=== PATIENT | male | born 1985 | race African-American/Black ===

== ENCOUNTER 2025-05-26 19:01 | Emergency (ER) | payer OTHER ==
[~2025-05-26] VITALS: Ht 185.4 cm; Wt 84.1 kg
[2025-05-26 19:03] VITALS: TEMP 98.2
[2025-05-26 20:13] LABS: BASO # 0.0 10^3/uL (0.0-0.2); BASO % 0.5 % (0.0-1.0); EOS # 0.2 10^3/uL (0.0-0.5); EOS % 3.5 % (0.0-3.0); LYMPH # 1.6 10^3/uL (1.5-5.0); LYMPH % 38.4 % (24.0-44.0); MONO # 0.5 10^3/uL (0.0-0.8); MONO % 11.1 % (2.0-8.0); NEUTROPHILS # 2.0 10^3/uL (1.5-8.5); NEUTROPHILS % 46.3 % (36.0-66.0); PLATELET COUNT, AUTOMATED 248 10^3/uL (150-450)
[2025-05-26 20:18] LABS: KETONE, URINE AUTO RFX NEGATIVE (NEGATIVE); LEUKOCYTE ESTERASE UR AUTO RFX NEGATIVE (NEGATIVE); MUCUS, URINE RFX SMALL (NEGATIVE); NITRITE, URINE AUTO RFX NEGATIVE (NEGATIVE); RBC, URINE AUTO RFX 2 /HPF (0-3); SQUAM EPITHELIAL CELL UR AURFX 0 /HPF (0-6); WBC, URINE AUTO RFX 1 /HPF (0-3)
[2025-05-26 20:39] LABS: ALT/SGPT 46 U/L (7.0-40); AST/SGOT 38 U/L (<34); CALCIUM LEVEL 9.1 MG/DL (8.5-10.1); CARBON DIOXIDE LEVEL 28 MMOL/L (20-31); CHLORIDE LEVEL 108 MMOL/L (98-107); CREATININE FOR GFR 0.91 MG/DL (0.70-1.30); GLOMERULAR FILTRATION RATE > 90.0 (>60); POTASSIUM SERUM 4.0 MMOL/L (3.5-5.1); SODIUM LEVEL 143 MMOL/L (136-145)
[2025-05-26] MEDS ORDERED: ISOVUE-370 76% 100 ML VIAL As Ordered ONE (21:36)
[2025-05-26 21:53] LABS: FREE T4 1.40 NG/DL (0.89-1.76)
[2025-05-26] MEDS ORDERED: PRED20TA PO (23:22)
[2025-05-26] MEDS ORDERED: OMEP10CASR PO (23:22)
[2025-05-26] MEDS ORDERED: SUCR1TA PO (23:22)
[2025-05-26 23:30] VITALS: O2SAT 99
[2025-05-26 23:31] VITALS: BP 131/83
== END 2025-05-26 23:34 | disposition home or self-care (01) ==
LOC: M ED 19:01
DX: A08.39 Other viral enteritis (principal); E05.00 Thyrotoxicosis with diffuse goiter without thyrotoxic crisis or storm
CPT/HCPCS: 74177; 80048; 80053; 80061; 80076; 80178; 81001; 82306; 83036; 83690; 84439; 84443; 85025; 85027; 99284; Q9967

== ENCOUNTER → 2025-05-26 | Outpatient (CLI) | payer OTHER ==
[~2025-05-26] MED LIST: OMEP10CASR PO; PRED20TA PO; SUCR1TA PO
[2025-05-26 20:27] LABS: PLATELET COUNT, AUTOMATED 247 10^3/uL (150-450)
[2025-05-26 20:53] LABS: ALT/SGPT 45 U/L (7.0-40); AST/SGOT 36 U/L (<34); CALCIUM LEVEL 9.1 MG/DL (8.5-10.1); CARBON DIOXIDE LEVEL 27 MMOL/L (20-31); CHLORIDE LEVEL 108 MMOL/L (98-107); CHOLESTEROL LEVEL 208 MG/DL (<200); CHOLESTEROL RISK RATIO 2.41 (<5); CREATININE FOR GFR 0.91 MG/DL (0.70-1.30); GLOMERULAR FILTRATION RATE > 90.0 (>60); LDL CHOLESTEROL 102.8 MG/DL (<100); NON-HDL-C 122.0 MG/DL; POTASSIUM SERUM 4.0 MMOL/L (3.5-5.1); SODIUM LEVEL 143 MMOL/L (136-145); TRIGLYCERIDES LEVEL 96 MG/DL (<150)
[2025-05-26 20:55] LABS: TOTAL 25(OH) VITAMIN D 27.7 NG/ML (20.0-100.0)
[2025-05-26 21:21] LABS: ESTIMATED AVERAGE GLUCOSE 111.0 MG/DL (60-110)
[2025-05-26 22:41] LABS: LITHIUM LEVEL 0.16 MMOL/L (1.0-1.20)
== END ==
LOC: M LAB 19:50
PROVIDERS: ATTEND Nurse Practitioner Psychiatric/Mental Health
DX: Z79.899 Other long term (current) drug therapy (principal)